=== PATIENT | male | born 1955 | race Caucasian/White ===

== ENCOUNTER → 2024-03-21 11:03 | Outpatient (REF) | payer MEDICARE, OTHER, SELFPAY | LOC: HWRAD 11:03 | PROVIDERS: ATTENDING PHYSICIAN Internal Medicine Geriatric Medicine | DX: M54.50 Low back pain, unspecified (principal) | CPT/HCPCS: 72100 ==

== ENCOUNTER → 2024-04-11 18:11 | Outpatient (REF) | payer MEDICARE, OTHER, SELFPAY | LOC: PAVMRI 18:11 | PROVIDERS: ATTENDING PHYSICIAN Internal Medicine Geriatric Medicine | DX: M51.36 Other intervertebral disc degeneration, lumbar region (principal); M41.9 Scoliosis, unspecified | CPT/HCPCS: 72148 ==

== ENCOUNTER → 2024-05-05 08:50 | Outpatient (REF) | payer MEDICARE, OTHER, SELFPAY | LOC: RAD 08:50 | PROVIDERS: ATTENDING PHYSICIAN Internal Medicine Geriatric Medicine | DX: T07.XXXA Unspecified multiple injuries, initial encounter (principal); Z85.46 Personal history of malignant neoplasm of prostate; M85.89 Other specified disorders of bone density and structure, multiple sites | CPT/HCPCS: 77080; 78306; A9503 ==

== ENCOUNTER → 2024-05-18 11:33 | Outpatient (REF) | payer MEDICARE, OTHER, SELFPAY | LOC: HWRAD 11:33 | PROVIDERS: ATTENDING PHYSICIAN Internal Medicine Geriatric Medicine | DX: R07.81 Pleurodynia (principal); R93.89 Abnormal findings on diagnostic imaging of other specified body structures | CPT/HCPCS: 71101 ==

== ENCOUNTER → 2024-11-03 12:18 | Outpatient (REF) | payer MEDICARE, OTHER, SELFPAY | LOC: HWRAD 12:18 | PROVIDERS: ATTENDING PHYSICIAN Surgery; FAMILY PHYSICIAN Internal Medicine Geriatric Medicine | DX: K40.20 Bilateral inguinal hernia, without obstruction or gangrene, not specified as recurrent (principal) | CPT/HCPCS: 76870; 93976 ==

== ENCOUNTER → 2024-11-28 09:43 | Outpatient (REF) | payer MEDICARE, OTHER, SELFPAY ==
[2024-11-28 11:20] LABS: Hematocrit 39.9 % (39.0-52.0); Hemoglobin 13.9 g/dL (13.0-18.0); Mean Corp Hgb Conc. 34.8 g/dL (33.0-37.0); Mean Corpuscular Hgb 33.5 pg (27.0-31.0); Mean Corpuscular Volume 96.1 fL (80.0-94.0); Platelet Count 235 10^3/uL (130-400); Red Blood Cell Count 4.15 10^6/uL (4.70-6.10); Red Cell Dist. Width 12.7 % (11.5-14.5); White Blood Cell Count 4.1 10^3/uL (4.8-10.8)
[2024-11-28 12:25] LABS: Blood Urea Nitrogen 19 mg/dl (9-20); Calcium 9.4 mg/dl (8.4-10.2); Carbon Dioxide 29 mmol/L (22-30); Chloride 102 mmol/L (98-107); Glucose 84 mg/dl (70-99); Potassium 4.3 mmol/L (3.5-5.1); Sodium 137 mmol/L (135-145); eGFR > 60.00
== END ==
LOC: SDSPAT 09:43
PROVIDERS: ATTENDING PHYSICIAN Surgery; FAMILY PHYSICIAN Internal Medicine Geriatric Medicine
DX: Z01.818 Encounter for other preprocedural examination (principal)
CPT/HCPCS: 36415; 80048; 85027; 93005

== ENCOUNTER 2024-12-26 05:19 | Day surgery (SDC) | payer MEDICARE, OTHER, SELFPAY ==
[2024-11-28 14:16] VITALS: BMI 20.9
[2024-12-26] VITALS (9 sets, daily range): BP systolic 127–164; BP diastolic 74–88; BMI 20.9
[2024-12-26] MEDS: NORMOSOL-R/PLASMALYTE-A 1000 IV (06:27)
[2024-12-26] MEDS: TYLENOL 1000 MG PO (06:27)
--- NOTE | 2024-12-26 06:53 | HP.FOC2 ---
Focused History & Physical
Chief Complaint
HPI:
Chief Complaint: Bilateral inguinal hernias
HPI / Indication for Planned Procedure: Patient is a 69-year-old male recently seen in outpatient surgical evaluation secondary to bilateral inguinal swelling. Physical examination confirmed the presence of bilateral inguinal hernias left-sided
larger than right. Past abdominal surgical history notable for radical prostatectomy, postop radiation and Lupron therapy. He presents today for scheduled operative correction of his symptomatic inguinal hernias.
Relevant Past Medical History: Other (History of kidney stones, diverticulitis, corneal dystrophy, GERD, history of prostate cancer, osteoporosis)
Relevant Social History: Negative
Relevant Family History: Negative
Relevant Past Surgical History: Positive for (Hip fracture, right total hip replacement, prostatectomy)
Review of Systems
Review of Pertinent Systems: All Systems Negative
Medication
See Medication form for detailed medications: Yes
Medication List (including Herbals & OTC):
Calcium 600 with Vitamin D3 1 cap PO DAILY 12/19/24
Immune 24 Hour 1 cap PO PRN PRN illness 12/19/24
Lupron Depot (3 month) 1 unit IM .[id number] 12/19/24
Multivitamin Gummies 2 gum PO DAILY 12/19/24
Probiotic 1 cap PO DAILY 12/19/24
abiraterone 250 mg tablet 1,000 mg PO DAILY 12/19/24
cyanocobalamin (vitamin B-12) 1,000 mcg tablet,extended release (Vitamin B-12 ER) 1,000 mcg PO DAILY 12/19/24
denosumab 60 mg/mL subcutaneous syringe (Prolia) 60 mg SC [id number] 12/19/24
prednisone 5 mg tablet 5 mg PO NOON 12/19/24
Medications Reviewed: Yes
Allergies and Reactions
Patient has Allergies: No
Noted Allergies and Reactions:
Allergy/AdvReac Type Severity Reaction Status Date / Time
No Known Allergies Allergy Verified 12/26/24 06:16
Pertinent Physical Exam
All Other Systems: Negative
Head/Neck: Normal
Lungs: Normal
Heart: Normal
Abdomen: Other (Bilateral inguinal hernias left larger than right)
Extremities: Normal
Neurological: Normal
Diagnosis / Assessment
69-year-old male presenting for scheduled operative correction of bilateral inguinal hernias
Plan / Procedure
Open repair of bilateral inguinal hernias with mesh
Anesthesia/Sedation to be done by Anesthesia Provider: Yes
--- NOTE | 2024-12-26 06:56 | W.SUR.PREOP ---
Pre-Operative Surgical Note
-
I have examined this patient prior to the performance of the scheduled procedure.
The patient's condition is unchanged from the time of the current History and
Physical and the patient is able to undergo the scheduled procedure.
--- NOTE | 2024-12-26 10:20 | W.IMMPOSTOP ---
Surgical Immed Post Op Note
-
Primary Surgeon: Thomas Bustamante MD
Assisting Surgeon: Lila SANDOVAL
Pre-op Diagnosis: B/L IH
Post-op Diagnosis: B/L IH - left indirect, right indirect
Procedure Performed: Open repair B/L IH with mesh; soft mesh 7.5cm x 15cm
Anesthesia Type: GETA + 1%lido and 0.25% Marcaine with epi
Specimen / Cultures: None
Estimated Blood Loss: 14 mL
Complications: None immediate
Operative Findings: Left indirect inguinal hernia with scrotal extension. Small lipoma of cord structures excised. Onlay [place] tension-free mesh repair 7.5cm x 15 cm soft mesh.
Right indirect inguinal hernia. Small lipoma of cord structures excised. Onlay [place] tension-free mesh repair 7.5 cm x 15 cm piece of mesh.
== END 2024-12-26 11:38 | disposition home or self-care (01) ==
LOC: SDS 05:19
PROVIDERS: ATTENDING PHYSICIAN Surgery; FAMILY PHYSICIAN Internal Medicine Geriatric Medicine
DX: K40.20 Bilateral inguinal hernia, without obstruction or gangrene, not specified as recurrent (principal)
CPT/HCPCS: 49505; A4648